=== PATIENT | male | born 1995 | race Caucasian/White ===

== ENCOUNTER 2022-12-27 15:58 | Emergency (ER) | payer OTHER ==
[~2022-12-27] VITALS: Ht 177.8 cm; Wt 108.9 kg
[2022-12-27 16:42] VITALS: BP 138/97
--- NOTE | 2022-12-27 16:45 | NUR ---
GREAT TOE AND ANKLE,LEFT LEG PAIN AND SWELLING,H/O GOUT
--- NOTE | 2022-12-27 17:28 | NUR ---
to er 4, no apparent change in condition
[2022-12-27] MEDS ORDERED: PRED50TA PO (17:46)
[2022-12-27] MEDS ORDERED: KETO10TA2 PO (17:46)
[2022-12-27] MEDS: predniSONE 50 MG TABLET PO ONE (18:00)
[2022-12-27] MEDS: KETOROLAC TROMETHAMINE INJ 60 MG/2 ML VIAL IM ONE (18:00)
--- NOTE | 2022-12-27 18:00 | NUR ---
medicated as order
[2022-12-27] MEDS ORDERED: predniSONE 20 MG TABLET ONE (18:01)
[2022-12-27] MEDS ORDERED: KETOROLAC TROMETHAMINE INJ 30 MG/ML VIAL ONE (18:01)
--- NOTE | 2022-12-27 18:08 | NUR ---
Patient discharged to home in stable condition. Written and verbal after care instructions given. Patient verbalizes understanding of instruction.
== END 2022-12-27 18:09 | disposition home or self-care (01) ==
LOC: ER 16:15
DX: M79.672 Pain in left foot (principal)
CPT/HCPCS: 99283; 96372; J1885